=== PATIENT | male | born 1955 | race Caucasian/White ===

== ENCOUNTER → 2018-09-01 | Outpatient (CLI) | payer SELFPAY ==
[2018-09-01 15:19] LABS: BASOPHILS ABSOLUTE AUTO 0.05 K/mm3 (0.00-0.23); BASOPHILS PERCENT AUTO 0 % (0-2); EOSINOPHILS ABSOLUTE AUTO 0.12 K/mm3 (0.00-0.68); EOSINOPHILS PERCENT AUTO 1 % (0-6); Hematocrit 48.1 % (37.0-53.0); Hemoglobin 16.7 g/dL (13.5-17.5); IMMATURE GRAN ABSOLUTE AUTO 0.06 K/mm3 (0.00-0.10); IMMATURE GRAN PERCENT AUTO 1 % (0-1); LYMPHOCYTES ABSOLUTE AUTO 2.61 K/mm3 (0.84-5.20); LYMPHOCYTES PERCENT AUTO 21 % (21-46); MONOCYTES ABSOLUTE AUTO 0.77 K/mm3 (0.16-1.47); MONOCYTES PERCENT AUTO 6 % (4-13); Mean Corpuscular HGB 29.4 pg (26.0-34.0); Mean Corpuscular HGB Conc 34.7 g/dL (31.5-36.5); Mean Corpuscular Volume 85 fL (80-100); NEUTROPHILS ABSOLUTE AUTO 8.95 K/mm3 (1.96-9.15); NEUTROPHILS PERCENT AUTO 71 % (41-73); Platelet Count 261 K/mm3 (150-400); RDW Coefficient Variation 12.5 % (11.7-14.2); RDW Standard Deviation 38.2 fL (35.1-46.3); Red Blood Cell Count 5.68 M/mm3 (4.30-5.90); White Blood Cell Count 12.56 K/mm3 (4.00-11.30)
[2018-09-01 15:30] LABS: Anion Gap 10 mmol/L (6-16); Blood Urea Nitrogen 39 mg/dL (8-24); Bun/Creatinine Ratio 22.7 (12.0-20.0); CO2, Blood 28 mmol/L (21-32); Calcium, Blood 10.1 mg/dL (8.5-10.1); Chloride, Blood 89 mmol/L (98-108); Creatinine, Blood 1.72 mg/dL (0.60-1.20); Glomerular Filtration Rate 40 (60-); Glucose, Blood 496 mg/dL (70-99); Potassium, Blood 4.9 mmol/L (3.5-5.5); Sodium, Blood 127 mmol/L (136-145)
[2018-09-01 15:32] LABS: Troponin I <0.017 ng/mL (0.000-0.040)
== END | disposition home or self-care (01) ==
LOC: LAB SHORT 15:11 → LAB EV 15:11
PROVIDERS: Family Medicine
DX: E11.9 Type 2 diabetes mellitus without complications (principal); E86.1 Hypovolemia
CPT/HCPCS: 80048; 84484; 85025

== ENCOUNTER → 2018-10-11 | Outpatient (CLI) | payer BC ==
[~2018-10-11] MED LIST: LISI20 PO; Metformin HCl1000 MG PO; PIOG30 PO
[2018-10-11 11:33] LABS: BASOPHILS ABSOLUTE AUTO 0.02 K/mm3 (0.00-0.23); BASOPHILS PERCENT AUTO 0 % (0-2); EOSINOPHILS ABSOLUTE AUTO 0.17 K/mm3 (0.00-0.68); EOSINOPHILS PERCENT AUTO 2 % (0-6); Hematocrit 44.1 % (37.0-53.0); Hemoglobin 13.4 g/dL (13.5-17.5); IMMATURE GRAN ABSOLUTE AUTO 0.02 K/mm3 (0.00-0.10); IMMATURE GRAN PERCENT AUTO 0 % (0-1); LYMPHOCYTES ABSOLUTE AUTO 1.99 K/mm3 (0.84-5.20); LYMPHOCYTES PERCENT AUTO 24 % (21-46); MONOCYTES ABSOLUTE AUTO 0.59 K/mm3 (0.16-1.47); MONOCYTES PERCENT AUTO 7 % (4-13); Mean Corpuscular HGB 29.9 pg (26.0-34.0); Mean Corpuscular HGB Conc 30.4 g/dL (31.5-36.5); Mean Corpuscular Volume 98 fL (80-100); Mean Platelet Volume 11.3 fL (9.1-12.4); NEUTROPHILS ABSOLUTE AUTO 5.66 K/mm3 (1.96-9.15); NEUTROPHILS PERCENT AUTO 67 % (41-73); Platelet Count 172 K/mm3 (150-400); RDW Coefficient Variation 13.2 % (11.7-14.2); RDW Standard Deviation 47.1 fL (35.1-46.3); Red Blood Cell Count 4.48 M/mm3 (4.30-5.90); White Blood Cell Count 8.45 K/mm3 (4.00-11.30)
[2018-10-11 11:43] LABS: Alanine Aminotransfer (ALT/SGP 13 U/L (12-78); Albumin/Globulin Ratio 0.7 (0.8-1.8); Alk Phos 92 U/L (50-136); Anion Gap 5 mmol/L (6-16); Aspartate Aminotrans (AST/SGOT 7 U/L (12-37); Bilirubin, Total 0.3 mg/dL (0.1-1.0); Blood Urea Nitrogen 21 mg/dL (8-24); Bun/Creatinine Ratio 22.5 (12.0-20.0); CHOL/HDL RATIO 5.8; CO2, Blood 30 mmol/L (21-32); Calcium, Blood 8.8 mg/dL (8.5-10.1); Chloride, Blood 105 mmol/L (98-108); Cholesterol 190 mg/dL (50-200); Creatinine, Blood 0.93 mg/dL (0.60-1.20); Globulin, Blood 4.5 g/dL (2.2-4.0); Glomerular Filtration Rate >60 (60-); Glucose, Blood 201 mg/dL (70-99); HDL Cholesterol 33 mg/dL (>39); LDL/HDL RATIO 3.9; Low Density Lipoprotein Chol 129 mg/dL (0-110); Sodium, Blood 140 mmol/L (136-145); Total Protein, Blood 7.5 g/dL (6.4-8.2); Triglycerides 139 mg/dL (30-160); Very Low Density Lipoprot Chol 27 mg/dL (6-32)
[2018-10-11 12:31] LABS: Microalb/Creat Ratio UR, Rand 984.733 mg/g (0.000-30.000)
== END ==
LOC: LAB SHORT 11:19 → LAB 11:19
PROVIDERS: Family Medicine
DX: E11.9 Type 2 diabetes mellitus without complications (principal)
CPT/HCPCS: 80053; 80061; 82043; 82570; 85025

== ENCOUNTER 2018-10-12 11:17 | Emergency (ER) | payer BC ==
[~2018-10-12] VITALS: Ht 182.9 cm; Wt 85.3 kg
[2018-10-12] MEDS ORDERED: Metformin HCl1000 MG PO (11:45)
[2018-10-12] MEDS ORDERED: LISI20 PO (11:45)
[2018-10-12] MEDS ORDERED: PIOG30 PO (11:46)
== END 2018-10-12 14:30 | disposition home or self-care (01) ==
LOC: ER 11:17
DX: E11.69 Type 2 diabetes mellitus with other specified complication (principal); M86.9 Osteomyelitis, unspecified; E11.621 Type 2 diabetes mellitus with foot ulcer; L97.519 Non-pressure chronic ulcer of other part of right foot with unspecified severity; I10 Essential (primary) hypertension; F17.200 Nicotine dependence, unspecified, uncomplicated; Z79.899 Other long term (current) drug therapy; Z79.84 Long term (current) use of oral hypoglycemic drugs
CPT/HCPCS: 36415; 73630; 82947; 87071; 87075; 87077; 87186; 87205; 93971; 96365; 99283-25; J0696

== ENCOUNTER 2018-10-13 09:51 | Day surgery (SDC) | payer BC | END 2018-10-13 11:03 | disposition home or self-care (01) | LOC: ATC 09:51 | DX: E11.69 Type 2 diabetes mellitus with other specified complication (principal); M86.9 Osteomyelitis, unspecified; E11.621 Type 2 diabetes mellitus with foot ulcer; L97.519 Non-pressure chronic ulcer of other part of right foot with unspecified severity; I10 Essential (primary) hypertension; F17.200 Nicotine dependence, unspecified, uncomplicated | CPT/HCPCS: 96365; J0696 ==

== ENCOUNTER 2018-10-14 07:29 | Day surgery (SDC) | payer BC | END 2018-10-14 14:36 | disposition home or self-care (01) | LOC: ATC 07:29 | DX: E11.69 Type 2 diabetes mellitus with other specified complication (principal); M86.9 Osteomyelitis, unspecified; E11.621 Type 2 diabetes mellitus with foot ulcer; L97.519 Non-pressure chronic ulcer of other part of right foot with unspecified severity; I10 Essential (primary) hypertension; F17.200 Nicotine dependence, unspecified, uncomplicated | CPT/HCPCS: 96365; J0696 ==

== ENCOUNTER 2018-10-15 15:46 | Day surgery (SDC) | payer BC ==
--- NOTE | 2018-10-15 16:09 | NUR ---
History, Chart, Medications and Allergies reviewed before start of procedure. Lungs clear T/O to Auscultation. Patient States Post-Procedure ride home has been arranged. Patient confirms NPO status and agrees with scheduled surgery.
--- NOTE | 2018-10-15 18:00 | NUR ---
Patient up to Ambulate independently. Gait steady. Discharge instructions reviewed with patient. Patient verbalizes understanding. Copy given to patient to take home. Patient States Post-Procedure ride home has been arranged. Discharged via wheelchair to private car for ride home.
== END 2018-10-15 23:34 | disposition home or self-care (01) ==
LOC: ORSCMMR 15:46 → ORD 20:00 → ORSCMMR 20:00
PROVIDERS: Podiatrist
PROC: 0Y6P0Z3 Detachment at Right 1st Toe, Low, Open Approach (ICD-10-PCS; principal; 2018-10-15 20:00)
PROC: 0Y6R0Z3 Detachment at Right 2nd Toe, Low, Open Approach (ICD-10-PCS; principal; 2018-10-15 20:00)
DX: M86.171 Other acute osteomyelitis, right ankle and foot (principal); L97.514 Non-pressure chronic ulcer of other part of right foot with necrosis of bone; I10 Essential (primary) hypertension; E11.9 Type 2 diabetes mellitus without complications; Z79.899 Other long term (current) drug therapy; F17.210 Nicotine dependence, cigarettes, uncomplicated
CPT/HCPCS: 82947; 88305; 88311; J0690; J2250; J2704; J3010; J7120

== ENCOUNTER 2018-11-29 09:19 | Inpatient (IN) | payer BC ==
[~2018-11-29] VITALS: Ht 182.9 cm; Wt 86.3 kg
[2018-11-29 10:03] LABS: Hematocrit 47.3 % (37.0-53.0); Hemoglobin 14.9 g/dL (13.5-17.5); Mean Corpuscular HGB 28.1 pg (26.0-34.0); Mean Corpuscular HGB Conc 31.5 g/dL (31.5-36.5); Mean Corpuscular Volume 89 fL (80-100); Mean Platelet Volume 12.1 fL (9.1-12.4); Platelet Count 166 K/mm3 (150-400); RDW Coefficient Variation 13.9 % (11.7-14.2); RDW Standard Deviation 45.4 fL (35.1-46.3); Red Blood Cell Count 5.31 M/mm3 (4.30-5.90); White Blood Cell Count 12.55 K/mm3 (4.00-11.30)
[2018-11-29 10:23] LABS: International Normalized Ratio 0.98; Prothrombin Time Results 10.4 Sec (9.7-11.5)
[2018-11-29 10:32] LABS: Alanine Aminotransfer (ALT/SGP 29 U/L (12-78); Albumin, Blood 4.2 g/dL (3.4-5.0); Albumin/Globulin Ratio 0.9 (0.8-1.8); Alk Phos 137 U/L (50-136); Anion Gap 5 mmol/L (6-16); Aspartate Aminotrans (AST/SGOT 27 U/L (12-37); Bilirubin, Total 0.6 mg/dL (0.1-1.0); Blood Urea Nitrogen 24 mg/dL (8-24); Bun/Creatinine Ratio 20.3 (12.0-20.0); CHOL/HDL RATIO 3.6; CO2, Blood 29 mmol/L (21-32); Calcium, Blood 9.4 mg/dL (8.5-10.1); Chloride, Blood 100 mmol/L (98-108); Cholesterol 149 mg/dL (50-200); Creatinine, Blood 1.18 mg/dL (0.60-1.20); Globulin, Blood 4.5 g/dL (2.2-4.0); Glomerular Filtration Rate >60 (60-); Glucose, Blood 414 mg/dL (70-99); HDL Cholesterol 41 mg/dL (>39); LDL/HDL RATIO 1.9; Low Density Lipoprotein Chol 80 mg/dL (0-110); Magnesium, Blood 1.4 mg/dL (1.6-2.4); Potassium, Blood 3.8 mmol/L (3.5-5.5); Sodium, Blood 134 mmol/L (136-145); Total Protein, Blood 8.7 g/dL (6.4-8.2); Triglycerides 141 mg/dL (30-160); Troponin I 0.095 ng/mL (0.000-0.040); Very Low Density Lipoprot Chol 28 mg/dL (6-32)
[2018-11-29] MEDS ORDERED: ATOR40TA PO (11:25)
--- NOTE | 2018-11-29 12:52 | NUR ---
ARRIVAL TO ICU 1115 - PT ARRIVES TO ICU FROM REGIONAL MARKETING DIRECTOR. TR BAND SECURED ON R WRIST AND ARM IN ARMBOARD. PT AWARE THAT HE IS NOT TO BEND WRIST, PUSH OR PULL WITH R ARM. R FINGERS DARRELL BUT ARE SLIGHTLY COOL; MONITORING CLOSELY. DENIES CHEST PAIN OR ANY PAIN AT THIS TIME. IV SALINE LOCKED. NSR WITH PACS, HR 60-70S. MAP GREATER THAN 65. SPO2 98% ON RA; LUNG SOUNDS CLEAR IN ALL SUMMERS. PT A/O X 3, CALM AND APPROPRIATE. HAD EXTENSIVE DISCUSSION WITH MD KILPATRICK REGARDING HIS WANTS OF DNR STATUS; STATED HE DOES NOT WANT TO BE SHOCKED OR HAVE COMPRESSIONS. MD EVANGELISTA CONSULTED FOR DIABETES AND MEDICAL MANAGEMENT. PHOTOS OBTAINED OF SCABBED DIABETIC ULCER ON R GREAT TOE; SEE HARD CHART. CALL LIGHT WITHIN REACH. WILL CONTINUE TO MONITOR.
[2018-11-29 13:57] LABS: BASOPHILS ABSOLUTE AUTO 0.02 K/mm3 (0.00-0.23); BASOPHILS PERCENT AUTO 0 % (0-2); EOSINOPHILS ABSOLUTE AUTO 0.01 K/mm3 (0.00-0.68); EOSINOPHILS PERCENT AUTO 0 % (0-6); Hematocrit 41.7 % (37.0-53.0); Hemoglobin 13.5 g/dL (13.5-17.5); IMMATURE GRAN ABSOLUTE AUTO 0.02 K/mm3 (0.00-0.10); IMMATURE GRAN PERCENT AUTO 0 % (0-1); LYMPHOCYTES ABSOLUTE AUTO 1.52 K/mm3 (0.84-5.20); LYMPHOCYTES PERCENT AUTO 16 % (21-46); MONOCYTES ABSOLUTE AUTO 0.51 K/mm3 (0.16-1.47); MONOCYTES PERCENT AUTO 6 % (4-13); Mean Corpuscular HGB 29.5 pg (26.0-34.0); Mean Corpuscular HGB Conc 32.4 g/dL (31.5-36.5); Mean Corpuscular Volume 91 fL (80-100); Mean Platelet Volume 11.9 fL (9.1-12.4); NEUTROPHILS ABSOLUTE AUTO 7.26 K/mm3 (1.96-9.15); NEUTROPHILS PERCENT AUTO 78 % (41-73); Platelet Count 126 K/mm3 (150-400); RDW Coefficient Variation 13.8 % (11.7-14.2); RDW Standard Deviation 46.5 fL (35.1-46.3); Red Blood Cell Count 4.58 M/mm3 (4.30-5.90); White Blood Cell Count 9.34 K/mm3 (4.00-11.30)
[2018-11-29 14:18] LABS: Anion Gap 4 mmol/L (6-16); Blood Urea Nitrogen 23 mg/dL (8-24); Bun/Creatinine Ratio 23.5 (12.0-20.0); CO2, Blood 27 mmol/L (21-32); Calcium, Blood 8.4 mg/dL (8.5-10.1); Chloride, Blood 104 mmol/L (98-108); Creatinine, Blood 0.98 mg/dL (0.60-1.20); Glomerular Filtration Rate >60 (60-); Glucose, Blood 296 mg/dL (70-99); Potassium, Blood 4.3 mmol/L (3.5-5.5); Sodium, Blood 135 mmol/L (136-145)
[2018-11-29 14:35] LABS: CPK Creatine Kinase 1254 U/L (39-308)
[2018-11-29 14:50] LABS: Creatine Kinase MB 234.3 ng/mL (0.0-3.6); Creatine Kinase MB Index 18.7 (0.0-4.0)
--- NOTE | 2018-11-29 18:32 | NUR ---
SHIFT SUMMARY PT ARRIVES FROM BATTERY MECHANIC AT 1115 WITH TR BAND SECUREDD. TR BAND REMOVED AT 1700 AND ARM REMAINS IN ARMBOARD. DENIES CHEST PAIN THIS AFTERNOON. NSR, HR 80S AND STABLE BP. COREG DOSE HELD DUE TO TRENDS OF MAPS 65-75. UP TO TOILET WITH NO ASSIST. IV SALINE LOCKED. NO REBLEEDING FROM RADIAL SITE. SPOKE WITH MD KILPATRICK AND HE STATED PT IS TO REMAIN IN ICU FOR THE NIGHT. WILL GIVE BEDSIDE HANDOFF REPORT TO CARRILLO RN.
--- NOTE | 2018-11-29 19:15 | NUR ---
ASSUME CARE: REPORT RECIEVED FROM OFFGOING RN TO. MONITOR INTACT SHOWING SINUS RHYTHM. HEART RATE 80'S. DENIES DISCOMFORT. A/O WATCHING TV. LUNG SOUNDS CLEAR RESPIRATIONS REGULAR AND EASY AT REST. SPO2 96%. TR BAND SITE CLEAR ARMBOARD IN PLACE. ABDOMEN SOFT WITH BOWEL SOUNDS FOUR QUADS. R GREAT TOE DRESSING DRY INTACT. PEDAL PULSES PRESENT NO EDEMAN NOTED. CONTINUR TO MONITOR AND REPORT CHANGE IN PATIENT CONDITION
--- NOTE | 2018-11-29 21:45 | NUR ---
. DR MARTE NOTIFIED OF PATIENTS REQUEST TO TAKE "DIABETIC MEDICATION" " BECAUSE 189 IS TOO HIGH" ATTEMPTED TO EXPLAIN THAT WAS ON LOW SLIDING SCALE AND NURSES WOULD BE MONITORING BLOOD SUGARS. INSISTENT THAT WOULD CALL FRIEND TO BRING IN OWN MED. "i WILL BE TAKING MEDICATION FOR MY DIABETES TONIGHT". DR MARTE IN TO SEE PATIENT ORDERS NOTED. CONTINUE TO MONITOR AND REPORT CHANGE IN PATIENT CONDITION.
[2018-11-29 22:05] LABS: Troponin I 77.5 ng/mL (0.000-0.040)
[2018-11-29 22:24] LABS: Creatine Kinase MB 186.3 ng/mL (0.0-3.6); Creatine Kinase MB Index 17.3 (0.0-4.0)
[2018-11-30 04:10] LABS: Hematocrit 36.1 % (37.0-53.0); Hemoglobin 11.4 g/dL (13.5-17.5); Mean Corpuscular HGB 28.1 pg (26.0-34.0); Mean Corpuscular HGB Conc 31.6 g/dL (31.5-36.5); Mean Corpuscular Volume 89 fL (80-100); Mean Platelet Volume 12.3 fL (9.1-12.4); Platelet Count 108 K/mm3 (150-400); RDW Coefficient Variation 14.1 % (11.7-14.2); Red Blood Cell Count 4.06 M/mm3 (4.30-5.90); White Blood Cell Count 8.16 K/mm3 (4.00-11.30)
[2018-11-30 04:50] LABS: Anion Gap 3 mmol/L (6-16); Blood Urea Nitrogen 24 mg/dL (8-24); Bun/Creatinine Ratio 23.8 (12.0-20.0); CO2, Blood 27 mmol/L (21-32); Calcium, Blood 8.1 mg/dL (8.5-10.1); Chloride, Blood 110 mmol/L (98-108); Creatinine, Blood 1.01 mg/dL (0.60-1.20); Glomerular Filtration Rate >60 (60-); Glucose, Blood 180 mg/dL (70-99); Magnesium, Blood 1.4 mg/dL (1.6-2.4); Potassium, Blood 4.4 mmol/L (3.5-5.5); Sodium, Blood 140 mmol/L (136-145)
[2018-11-30 05:08] LABS: CPK Creatine Kinase 787 U/L (39-308)
--- NOTE | 2018-11-30 05:27 | NUR ---
SHIFT SUMMARY: RESTS QUIETLY WHEN UNDISTURBED. MONITOR INTACT SHOWING SINUS RHYTHM. HEART RATE 60'S-80S WITH PAC, REPERFUSION BEATS, SEE RHYTHM STRIPS. DENIES DISCOMFORT. LUNG SOUNDS COARSE/CLEAR. RESPIRATIONS REGULAR AND EASY ON ROOM AIR. SPO2 95-98% ABDOMEN SOFT WITH BOWEL SOUNDS FOUR QUADS. VOIDS GRETCHEN URINE. GAIT STEADY TO TOILET. TR BAND SITE CLEAR ARMBOARD IN PLACE. CONTINUE TO MONITOR AND REPORT CHANGE IN PATIENT CONDITION.'
[2018-11-30 05:28] LABS: Creatine Kinase MB 119.4 ng/mL (0.0-3.6); Creatine Kinase MB Index 15.2 (0.0-4.0)
--- NOTE | 2018-11-30 08:40 | NUR ---
PT LAYING IN BED WATCHING TV, A/OX3, PLEASANT AND COOPERATIVE WITH CARE, FOLLOW COMMANDS WELL, DENIES ANY CHEST PAIN SINCE PROCEDURE, NO SOB OR NAUSIA, LUNGS ARE CLEAR T/O, RESP EVEN AND UNLABORED, NO COUGH NOTED, HRR, MONITOR IN PLACE RUNNING SR WITH OCC PAC'S, NO EDEMA NOTED, PPP+1, CAP REFILL <3SEC, VS STABLE, AFEBRILE, IV SITE TO RAC IS CLEAR AND PATENT, BTX4, ABD FLAT SOFT NONTENDER, VOIDS WITHOUT DIFF, SKIN HAS SOME SCABS AND WOUND TO RIGHT GREAT TOE ON THE BOTTOM, DRESSING IN PLACE, LEONA FOURNIER, CALL LIGHT IN REACH.
[2018-11-30] MEDS ORDERED: ASPI325 PO (09:54)
[2018-11-30] MEDS ORDERED: Lisinopril2.5 MG PO (09:54)
[2018-11-30] MEDS ORDERED: CARV3.125 PO (09:55)
[2018-11-30] MEDS ORDERED: CLOP75 PO (09:55)
--- NOTE | 2018-11-30 10:45 | NUR ---
RECEIVE REPORT FROM JOSE GRESHAM RN, ASSUMED CARE, PATIENT HAS DISCHARGE ORDERS, AWAITING DR. ERVIN TO AGREE FOR DISCHARGE, DR. ERVIN IN TO SEE PATIENT, BUT CALLED DR. PALACIO, [place], TO COME AND SPEAK WITH PATIENT, DR. PALACIO IN, PATIENT WAS GIVEN OPTION OF HAVING THIRD PROCEDURE DONE NOW OR ON AN OUTPATIENT BASE, PATIENT WILL DECIDE, CALL LIGHT IN REACH, WILL CONTINUE TO MONITOR.
--- NOTE | 2018-11-30 11:27 | NUR ---
PATIENT DECIDED TO HAVE PROCEDURE DONE TODAY, DR. ANDERSEN WAS NOTIFIED, WILL DO HEART CATH BETWEEN NOON AND 1 PM, PATIENT NPO AT THIS TIME, CALL LIGHT IN REACH, WILL CONTINUE TO MONITOR.
--- NOTE | 2018-11-30 11:31 | NUR ---
DR. SU NOTIFIED THAT PATIENT WILL NOT BE DISCHARGED TODAY.
--- NOTE | 2018-11-30 13:04 | NUR ---
PATIENT WAS TAKEN TO RECYCLING ASSISTANT AT 1245 VIA BED.
--- NOTE | 2018-11-30 14:33 | NUR ---
PATIENT RETURNED TO ROOM 14 FROM CAR UNLOADER HELPER AT 13:57, TR BAND IN PLACE ON RIGHT WRIST, PATIENT RETURNED WITH AGGRASTAT INFUSING, DONE WHEN BOTTLE COMPLETE, PATIENT DENIED PAIN, REPORTED NO CHEST PAIN/PRESSURE, NO SOB, STATED THAT HE "WAS HUNGRY", LUNCH TRAY GIVEN, PATIENT ATE WITH GOOD APPETITE, DR. PALACIO IN TO SEE PATIENT AND EXPLAIN PROCEDURE, PATIENT VERBALIZED UNDERSTANDING, WILL POSSIBLY BE DISCHARGED TOMORROW, FRIENDS AT BEDSIDE VISITING, CALL LIGHT IN REACH, WILL CONTINUE TO MONITOR.
--- NOTE | 2018-11-30 15:11 | NUR ---
PATIENT CONTINUES TO DO WELL WITH TR BAND, ABLE TO WIGGLE FINGERS, SENSATION PRESENT, COLOR PINK, C/O SLIGHT NUMBNESS IN RING FINGER BUT CSM INTACT OTHERWISE, VISITORS AT BEDSIDE, PATIENT DENIES PAIN, CHEST PAIN/PRESSURE, CALL LIGHT IN REACH, WILL CONTINUE TO MONITOR.
--- NOTE | 2018-11-30 16:47 | NUR ---
TR BAND WAS REINFLATED WITH 4 CC TO 10 CC TOTAL D/T SLIGHT OOZING, PATIENT IS ON AGGRASTAT DRIP, WILL WAIT UNTIL DRIP DONE, THEN RE-ATTEMPT.
--- NOTE | 2018-11-30 17:46 | NUR ---
SHIFT SUMMARY NOTE: PATIENT WAS INITIALLY DISCHARGED BY HOSPITALIST, BUT DR. PALACIO, STORE MANAGEMENT TRAINEE SPOKE WITH PATIENT AND IT WAS DECIDED THAT PATIENT WILL STAY AND HAVE THIRD STENT PLACEMENT DONE WELL, DR. SU NOTIFIED, DISCHARGE ON HOLD, PATIENT RECEIVED SHOWER PRIOR TO HEART CATH PROCEDURE, WAS TAKEN TO ELECTRICAL ACCESSORIES I ASSEMBLER AROUND 13:00 HOURS, AND RETURNED ABOUT 14:00 HOURS, STENT PLACEMENT WAS DONE VIA RIGHT RADIAL AGAIN, PATIENT RETURNED WITH TR BAND IN PLACE ON RIGHT RADIAL, ALSO WAS ON AGGRASTAT DRIP FOR ONE BOTTLE, DURING DEFLATION OF TR BAND THE INCISION SITE STARTED TO OOZE AT 6 CC'S LEFT IN BAND, TR BAND WAS REINFLATED TO 10 CC'S, AGGRASTAT DRIP FINISHED AND WILL ATTEMPT TO DEFLATE BAND AGAIN, PATIENT TOLERATING WELL, VSS, EATING WITH GOOD APPETITE, USES URINAL TO VOID, DISCHARGE PLANNED FOR TOMORROW, FOR DETAILS SEE ASSESSMENT DOCUMENTATION AND NURSES NOTES, CALL LIGHT IN REACH, WILL CONTINUE TO MONITOR.
--- NOTE | 2018-11-30 17:58 | NUR ---
Per admit trigger, I met with Wyatt to offer information regarding Advanced Directives.. He tells me that his Will includes his wishes and a medical spokesperson. I advised him to bring a copy to [facility] next time he is hospitalized. He agreed this was a good idea. No needs presented. He feels better and is looking forward to going home. I will remain available.
--- NOTE | 2018-11-30 19:30 | NUR ---
ASSUMED CARE PT CARE ASSUMED AT APPROXIMATELY 1900. PT RICHAR AOX4 AND RESTING IN BED WATCHING TV. TR BAND IN PLACE TO R RADIAL SITE AND COMPLETELY DEFLATED. PER DAY SHIFT RN, DRAINAGE NOTED UNDER TR BAND IS FROM EARLIER WITH OOZING UPON INITIAL DEFLATION. NO BRUISING, HEMATOMA OR SWELLING NOTED TO OR AROUND RADIAL SITE. ARM BOARD IN PLACE AND EDUCATION REITERATED ON REDUCING USE OR R WRIST. PT VERBALIZES UNDERSTANDING. DENIES ANY CHEST PAIN OR DYSPNEA AT THIS TIME. WILL CONTINUE TO MONITOR.
--- NOTE | 2018-12-01 06:23 | NUR ---
SHIFT SUMMARY PT HAS REMAINED AOX4 THROUGHOUT SHIFT. VSS. PLEASANT AND COOPERATIVE WITH CARE. TR BAND REMOVED AT APPROXIMATELY 1999 LAST NIGHT WITH VERY MINIMAL DRAINAGE NOTED AFTER SITE CLEANED AND CLEAR OPSITE PLACED. SITE HAS REMAINED UNCHANGED THROUGHOUT THE NIGHT AND PATIENT CONTINUES TO DENY PAIN ON PALPATION OF ARM AND AROUND SITE. ARM BOARD IN PLACE. PT CONTINUES TO DENY CHEST PAIN THROUGHOUT THE NIGHT. PT HAS RESTED WELL THROUGHOUT MUCH OF THE NIGHT, WOKE EASILY FOR CARE. CONTINUES TO AMBULATE INDEPENDENTLY TO TOILET WITHOUT DIFFICULTY. NO OTHER CHANGES NOTED FROM INITIAL ASSESSMENT WILL CONTINUE TO MONITOR AND REPORT TO ONCOMING SHIFT RN. BED IN LOW POSITION, CALL LIGHT IN REACH.
[2018-12-01] MEDS ORDERED: LISI5 PO (07:48)
--- NOTE | 2018-12-01 07:50 | NUR ---
ASSUMED CARE / DR. SU: REPORT RECEIVED FROM MATTHIAS Sandoval RN. ASSUMED CARE OF THIS PT AT APPROX 0700. ON ASSESSMENT, THE PT IS A&O, PLEASANT & COOPERATIVE. HE STS THAT HE HOPES TO D/C HOME TODAY. ASSESSMENT CHARTED. R RADIAL SITE IS WNL W/ NO BLEEDING, BRUISING OR HEMATOMA FORMATION NOTED. OPSITE DRESSING CDI. DRESSING TO ULCER ON R GREAT TOE AMPUTATION SITE HAS BEEN CHANGED. PROVIDER AT BEDSIDE TO SEE PT, D/C ORDERS HAVE BEEN PLACED. ONE D/C MED CHANGE HAS BEEN MADE. PT USES [facility] [place] FOR PHARMACY, WILL CALL THIS MED CHANGE WHEN PHARMACY OPENS AT 0900. WILL CONTINUE TO MONITOR & UPDATE NEEDED.
--- NOTE | 2018-12-01 08:56 | NUR ---
DISCHARGE TO HOME: D/C TEACHING COMPLETE. MONITORS & PIV HAVE BEEN REMOVED. PT VERBALIZES UNDERSTANDING OF WRIST PRECAUTIONS S/P ANGIOGRAM. D/C PACKET & STENT CARDS HAVE BEEN TAKEN OUT W/ PT, ALONG W/ ALL OF PT's BELONGINGS. R RADIAL SITE WNL ON D/C. PT VERBALIZES UNDERSTANDING OF EDUCATION PROVIDED TO HIM.
== END 2018-12-01 08:55 | disposition home or self-care (01) | DRG 247 ==
LOC: ER 09:19 → ICUW 09:43
PROVIDERS: Emergency Medicine; Internal Medicine; ADMIT Internal Medicine Cardiovascular Disease
PROC: 4A023N7 Measurement of Cardiac Sampling and Pressure, Left Heart, Percutaneous Approach (ICD-10-PCS; principal; 2018-11-29)
PROC: 027034Z Dilation of Coronary Artery, One Artery with Drug-eluting Intraluminal Device, Percutaneous Approach (ICD-10-PCS; 2018-11-29)
PROC: B211YZZ Fluoroscopy of Multiple Coronary Arteries using Other Contrast (ICD-10-PCS; 2018-11-29)
DX: I21.19 ST elevation (STEMI) myocardial infarction involving other coronary artery of inferior wall (principal); I10 Essential (primary) hypertension; I25.10 Atherosclerotic heart disease of native coronary artery without angina pectoris; E11.621 Type 2 diabetes mellitus with foot ulcer; L97.519 Non-pressure chronic ulcer of other part of right foot with unspecified severity; F17.210 Nicotine dependence, cigarettes, uncomplicated; E83.42 Hypomagnesemia
CPT/HCPCS: 36415; 80048; 80053; 80061; 82550; 82553; 82947; 83735; 84484; 85025; 85027; 85347; 85610; 85730; 93005; 93010; 93458; 99152; 99153; 99285-25; C1725; C1769; C1874; C1887; C1894; C9600; C9606; J1644; J1650; J2250; J2270; J3010; J3246; J7030; Q9967

== ENCOUNTER 2019-05-30 19:24 | Emergency (ER) | payer BC, OTHER ==
[~2019-05-30] VITALS: Ht 182.9 cm; Wt 86.2 kg
[~2019-05-30 19:24] MED LIST changes: +ASPI325 PO; +ATOR40TA PO; +CARV3.125 PO; +CLOP75 PO; +LISI5 PO; +Lisinopril2.5 MG PO
[2019-05-30] MEDS ORDERED: LIDO700A20 TOP (21:23)
== END 2019-05-30 21:30 | disposition home or self-care (01) ==
LOC: ER 19:24
DX: S40.022A Contusion of left upper arm, initial encounter (principal); E11.9 Type 2 diabetes mellitus without complications; I10 Essential (primary) hypertension; Z79.899 Other long term (current) drug therapy; Z79.84 Long term (current) use of oral hypoglycemic drugs; Z79.82 Long term (current) use of aspirin; Z79.01 Long term (current) use of anticoagulants; Z87.891 Personal history of nicotine dependence; X58.XXXA Exposure to other specified factors, initial encounter
CPT/HCPCS: 73030; 99283-25

== ENCOUNTER 2019-07-25 09:52 | Emergency (ER) | payer OTHER, BC ==
[~2019-07-25] VITALS: Ht 182.9 cm; Wt 90.3 kg
[~2019-07-25 09:52] MED LIST changes: +LIDO700A20 TOP
== END 2019-07-25 10:36 | disposition home or self-care (01) ==
LOC: ER 09:52
DX: Z04.1 Encounter for examination and observation following transport accident (principal); E11.9 Type 2 diabetes mellitus without complications; I10 Essential (primary) hypertension; F17.200 Nicotine dependence, unspecified, uncomplicated; Z79.84 Long term (current) use of oral hypoglycemic drugs; Z79.82 Long term (current) use of aspirin; Z79.899 Other long term (current) drug therapy
CPT/HCPCS: 99284

== ENCOUNTER 2019-08-31 11:52 | Inpatient (IN) | payer OTHER ==
[~2019-08-31] VITALS: Ht 182.9 cm; Wt 82.7 kg
[~2019-08-31 11:52] MED LIST changes: -ASPI325 PO; -ATOR40TA PO; -CARV3.125 PO; -CLOP75 PO; -LISI5 PO; -Metformin HCl1000 MG PO; -PIOG30 PO
[2019-08-31 12:51] LABS: BASOPHILS ABSOLUTE AUTO 0.04 K/mm3 (0.00-0.23); BASOPHILS PERCENT AUTO 1 % (0-2); EOSINOPHILS ABSOLUTE AUTO 0.09 K/mm3 (0.00-0.68); EOSINOPHILS PERCENT AUTO 1 % (0-6); Hematocrit 43.8 % (37.0-53.0); Hemoglobin 14.6 g/dL (13.5-17.5); IMMATURE GRAN ABSOLUTE AUTO 0.03 K/mm3 (0.00-0.10); IMMATURE GRAN PERCENT AUTO 0 % (0-1); LYMPHOCYTES PERCENT AUTO 17 % (21-46); MONOCYTES ABSOLUTE AUTO 0.52 K/mm3 (0.16-1.47); MONOCYTES PERCENT AUTO 6 % (4-13); Mean Corpuscular HGB 29.3 pg (26.0-34.0); Mean Corpuscular HGB Conc 33.3 g/dL (31.5-36.5); Mean Corpuscular Volume 88 fL (80-100); NEUTROPHILS ABSOLUTE AUTO 6.67 K/mm3 (1.96-9.15); NEUTROPHILS PERCENT AUTO 75 % (41-73); Platelet Count 158 K/mm3 (150-400); RDW Coefficient Variation 12.6 % (11.7-14.2); RDW Standard Deviation 40.4 fL (35.1-46.3); Red Blood Cell Count 4.99 M/mm3 (4.30-5.90); White Blood Cell Count 8.85 K/mm3 (4.00-11.30)
[2019-08-31 13:16] LABS: Alanine Aminotransfer (ALT/SGP 15 U/L (12-78); Albumin, Blood 3.4 g/dL (3.4-5.0); Albumin/Globulin Ratio 0.8 (0.8-1.8); Alk Phos 115 U/L (50-136); Anion Gap 5 mmol/L (6-16); Aspartate Aminotrans (AST/SGOT 19 U/L (12-37); Bilirubin, Total 0.6 mg/dL (0.1-1.0); Blood Urea Nitrogen 17 mg/dL (8-24); CO2, Blood 31 mmol/L (21-32); Calcium, Blood 9.4 mg/dL (8.5-10.1); Chloride, Blood 106 mmol/L (98-108); Creatinine, Blood 0.81 mg/dL (0.60-1.20); Globulin, Blood 4.1 g/dL (2.2-4.0); Glomerular Filtration Rate >60 (60-); Glucose, Blood 161 mg/dL (70-99); Potassium, Blood 3.7 mmol/L (3.5-5.5); Sodium, Blood 142 mmol/L (136-145); Total Protein, Blood 7.5 g/dL (6.4-8.2)
[2019-08-31] MEDS ORDERED: ASPI325 PO (14:59)
[2019-08-31] MEDS ORDERED: CLOP75 PO (14:59)
[2019-08-31] MEDS ORDERED: CARV3.125 PO (14:59)
[2019-08-31] MEDS ORDERED: LISI5 PO (14:59)
[2019-08-31] MEDS ORDERED: Metformin HCl1000 MG PO (14:59)
[2019-08-31] MEDS ORDERED: ATOR40TA PO (14:59)
[2019-08-31] MEDS ORDERED: NITR.4SL SL (15:00)
[2019-08-31] MEDS ORDERED: Glyburide5 MG PO (15:00)
[2019-08-31] MEDS ORDERED: FURO40 PO (15:21)
[2019-08-31] MEDS ORDERED: PIOG30 PO (15:21)
--- NOTE | 2019-08-31 18:34 | NUR ---
PT ADMITTED FROM ER THIS AFTERNOON. HE IS ALBE TO RESPOND WITH ONE WORDS, DOES NOT KNOW WHERE HE IS AT TIMES, IS UNABLE TO REMEMBER WHY HE IS HERE, DOESNT KNOW THE DATE , YEAR, WHO IS PRESIDENT. HE HAS ACUTE RIGHT SIDED WEAKNESS BUT NO NUMBNESS OR TINGLING. HE IS ABLE TO FEED HIMSELF AT THIS TIME WITH NO NOTICABLE SWALLOWING ISSUES. FRIENDS AT BEDSIDE.
--- NOTE | 2019-08-31 18:57 | NUR ---
pt seen in ER, confussed and difficulty tracking conversation. Met with his friend and caregiver Yrn.He understands prognosis He states he cannot care for patient anymore his needs are to high. He states hismedicaid kicked in this week. Review of possible plans of care and hospice care. Yrn was able to get ahold of his sister prabha she has patients will and knows his wishes she is going to try to be here thursday. Witnessed with pt nurse that sister wants yrn to be alternate decision maker. pt has expressed to them both that he would not want life support or cpr. Pt not able to make decision alone. after discussion pt POLST completed and pt made DNR.
--- NOTE | 2019-09-01 05:05 | NUR ---
SHIFT SUMMARY PT HAS HAD NO ACUTE CHANGES THIS SHIFT, HAS BEEN A&O TO SELF, PULLS ON LINES & REMOVES GOWN & BRIEF, DENIES PAIN, PT SLEEPING AT THIS TIME, CALL LIGHT IN REACH, BED ALARM ON, WILL CONT TO MONITOR UNTIL REPORT GIVEN TO DAY RN.
[2019-09-01 05:14] LABS: BASOPHILS PERCENT AUTO 0 % (0-2); EOSINOPHILS PERCENT AUTO 0 % (0-6); Hematocrit 37.5 % (37.0-53.0); Hemoglobin 12.6 g/dL (13.5-17.5); IMMATURE GRAN ABSOLUTE AUTO 0.02 K/mm3 (0.00-0.10); IMMATURE GRAN PERCENT AUTO 0 % (0-1); LYMPHOCYTES ABSOLUTE AUTO 0.74 K/mm3 (0.84-5.20); LYMPHOCYTES PERCENT AUTO 12 % (21-46); MONOCYTES ABSOLUTE AUTO 0.21 K/mm3 (0.16-1.47); MONOCYTES PERCENT AUTO 3 % (4-13); Mean Corpuscular HGB 28.6 pg (26.0-34.0); Mean Corpuscular HGB Conc 33.6 g/dL (31.5-36.5); Mean Platelet Volume 12.3 fL (9.1-12.4); NEUTROPHILS ABSOLUTE AUTO 5.13 K/mm3 (1.96-9.15); NEUTROPHILS PERCENT AUTO 84 % (41-73); Platelet Count 149 K/mm3 (150-400); RDW Coefficient Variation 12.2 % (11.7-14.2)
[2019-09-01 05:19] LABS: Mean Corpuscular Volume 85 fL (80-100)
[2019-09-01 05:27] LABS: International Normalized Ratio 1.08; Prothrombin Time Results 11.5 Sec (9.7-11.5)
[2019-09-01 05:32] LABS: Alanine Aminotransfer (ALT/SGP 12 U/L (12-78); Albumin, Blood 2.6 g/dL (3.4-5.0); Albumin/Globulin Ratio 0.7 (0.8-1.8); Alk Phos 91 U/L (50-136); Anion Gap 6 mmol/L (6-16); Aspartate Aminotrans (AST/SGOT 11 U/L (12-37); Bilirubin, Total 0.4 mg/dL (0.1-1.0); Blood Urea Nitrogen 17 mg/dL (8-24); Bun/Creatinine Ratio 21.2 (12.0-20.0); CO2, Blood 29 mmol/L (21-32); Calcium, Blood 8.1 mg/dL (8.5-10.1); Chloride, Blood 104 mmol/L (98-108); Globulin, Blood 3.5 g/dL (2.2-4.0); Glomerular Filtration Rate >60 (60-); Glucose, Blood 248 mg/dL (70-99); Magnesium, Blood 1.3 mg/dL (1.6-2.4); Potassium, Blood 3.5 mmol/L (3.5-5.5); Sodium, Blood 139 mmol/L (136-145); Total Protein, Blood 6.1 g/dL (6.4-8.2)
--- NOTE | 2019-09-01 12:29 | NUR ---
HE HAS HAD A BUSY MORNING WORKING WITH PT AND LATER OT. HE IS UP IN A RECLINER CHAIR WITH CHAIR ALARM ON. HE IS PLEASANTLY CONFUSED. SOMETIMES HE CAN TELL ME HIS AND SOMETIMES HE CANNOT. HIS FRIENDS DAVID AND BETTY HAVE BEEN WITH HIM MOST OF THE MORNING. ST ALSO EVALUATED HIM. HE IS ON [facility] SOFT DIET. HE WAS JUST EATING SCALLOPED POTATOES AND LASAGNA WITH HIS FINGERS INSTEAD OF HIS FORK. AFTER I HANDED THE FORK TO HIM, HE USED IT. NICOTINE PATCH STARTED. HE HAS BEEN RESTLESS. HIS FRIEND SAID HE SMOKES A PACK OR SO A DAY SO HE MIGHT BE MISSING THAT. TELE SHOWS AFIB. NOTIFIED. HE WILL TRY TO FIND OUT IF KASIA HAS A HX OF THAT IN HIS PAST. ONCOLOGY CONSULT CALLED AT 0730 TODAY. NO ONCOLOGIST YET. PALLIATIVE CARE ORDER IS IN.
--- NOTE | 2019-09-01 13:36 | NUR ---
WAS HERE TO CONSULT. HOSPICE IS DECIDED AMONGST THE 3 IN THE ROOM, PATIENT KASIA, FRIENDS RAY AND BETTY. I JUST NOTIFIED PALLIATIVE CARE.
--- NOTE | 2019-09-01 14:46 | NUR ---
Met with pt for theraputic time. Pt and his friend understand that hospice is the only option. review of needs with cattle care worker. pt teraful and anxious chaplian in to see him.
--- NOTE | 2019-09-01 18:02 | NUR ---
Initial spiritual care note: Mr. Ledezma was alone in room. He was limited to one word answers and appeared tearful and confused. He could not articulate his tearfulness or tell me anything about himself. He held my hand tightly while he wept on and off for quite awhile. He appeared to appreciaite touch and compassionate presence. He is non-jew and declined prayer. He will benefit from continued compassion and gentle presence of love. store clerk checker services will remain available.
--- NOTE | 2019-09-01 18:16 | NUR ---
HE IS COMFORTABLE. HIS FRIENDS HAVE LEFT FOR THE NIGHT. BED ALARM ON AND 3 RAILS UP. HE REMAINS CONFUSED. HIS DINNERTIME CBG WAS HIGHER BECAUSE HE ATE A DOUBLE CHEESEBURGER AND A LARGE PEPSI MID-AFTERNOON. HE HAS BEEN INCONTINENT OF URINE. NO BM TODAY. HE DID NOT FOLLOW INSTRUCTIONS WELL FOR MOBILIZATION. A NICOTINE PATCH WAS STARTED WHEN HE WAS RESTLESS. THE PALLIATIVE CARE NURSE WILL REVIEW THE ORDERS AND MAKE ANY NECESSARY CHANGES.
--- NOTE | 2019-09-01 19:16 | NUR ---
Hospice review with critical care registered nurse. his friend and supporter lives in [place] so care managers asked if placement available in [place]. Pt on nicoderm patch for comfort hope is he can smoke after DC if it sooths him. will monitor closely for s/s of seizure activity.
--- NOTE | 2019-09-02 06:23 | NUR ---
SHIFT SUMMARY PT HAS BEEN AGITATED & COMPLAINED OF PAIN IN HANDS AND HEAD, MEDICATED FOR BOTH PER MAR, PT HAS VOIDED SMALL AMTS FREQUENTLY T/O SHIFT, BLADDER SCAN SHOWED PVR= [id number], ORDER REC FOR LANGLEY, PT BEDRESTING AT THIS TIME, WILL CONT TO MONITOR UNTIL REPORT GIVEN TO DAY RN.
--- NOTE | 2019-09-02 08:00 | NUR ---
PT NOT WAKING UP WITH LIGHT PROMPTING. DID FINALLY AWAKEN BY PUTTING BED IN FULL UPRIGHT. RUBBED HAIR FOR SOME TIME. REFUSED FOOD OR WATER. KEPT EYES CLOSED. UNABLE TO EAT SAFELY. DID NOT ANS QUEST. RESP EASY, UNLABORED RESP 14. DID SPEAK TO DR CONRAD CONSIDERING IV DECADRON. NO NEW ORDERS. NO OTHER CONCERNS AT THIS TIME. BED IN LOW POSITIOIN, CALL LITE IN REACH, BED ALARM ON FOR SAFETY
--- NOTE | 2019-09-02 09:52 | NUR ---
SPOKE TO DR POWER RE PT NOT ABLE ENOIUGH TO SWALLOW. HELD DECADRON FOR NOW. WILL TRY TO GIVE LATER IF MORE AWAKE. NOT TO SWITCH TO IV AT THIS TIME.
--- NOTE | 2019-09-02 13:23 | NUR ---
PT AWAKE, EATING, FRIENDS IN ROOM ASSISTING IN FEEDING. CALLED PHARMACY. OKAY GIVE AM MED NOW. NO NEED TO EXTEND MILLICENT DOSE, BUT CAN IF AWAKE LATER IN MILLICENT. PT NOT ANSWERING MY QUESTIONS. BUT EATING AND LOOKING AT FRIENDS. BED IN LOW POSITOIN, CALL LITE IN REACH, BED ALARM ONFOR SAFETY
--- NOTE | 2019-09-02 14:27 | NUR ---
PT RESTING AT THIS TIME. EYES CLOSED , RESP EASY, UNLABORED.BED IN LOW POSITION, CALL LITE IN REACH, BED ALARM ON FOR SAFETY
--- NOTE | 2019-09-02 16:00 | NUR ---
pt resting will see if we can adjuste route on some of his medications.
--- NOTE | 2019-09-02 18:31 | NUR ---
PT WOKE UP FOR LUNCH WITH HIS LONG TIME FRIEND AND FOR DINNER. PROMPTLY FELL ASLEEP AGAIN. DID NOT TALK TO ME. HE DID EAT. CONTINUE TO MONITOR. BED IN LOW POSITION,C ALL LITE IN REACH, BED ALARM ON FOR SAFETY.
--- NOTE | 2019-09-03 04:45 | NUR ---
SHIFT SUMMARY PT HAS APPEARED TO BE COMFORTABLE T/O SHIFT, MEDICATED 1X FOR AGITATION, HAS SLEPT SINCE, POOR PO INTAKE THIS SHIFT, PT APPEARS TO BE SLEEPING COMFORTABLY AT THIS TIME, CALL LIGHT IN REACH, BED ALARM ACTIVE, WILL CONT TO MONITOR UNTIL REPORT GIVEN TO DAY RN.
--- NOTE | 2019-09-03 10:28 | NUR ---
PT UP AWAKE THIS AM. DENIES PAIN. ATE BREAKFAST. ABLE TO TELL ME NAME AND . NOT REMEMBERING YEST VISITORS. CALLED FRIEND TO ADVISE HE UP AND AWAKE. PT UNABLE TO TELL ME DATE, STATES 2 CHILDREN, NOT ABLE TO TELL ME NAMES. PT WANTED TO GET UP TO CHAIR. ASSISTED WITH 2 PEOPLE TO CHAIR. CHAIR ALARM ON FOR SAFETY. CALL LITE IN REACH, TV ON . SITTING IN CHAIR AT THIS TIME
--- NOTE | 2019-09-03 11:15 | NUR ---
[facility] COMFORT CARE VISIT Case conferenced with RN and reviewed EMR prior to visit. Pt was awake, alert, confused and sl anxious trying to get out of chair upon my arrival. RN was able to coax him back to reclining in chair. Pt is nonverbal a present. There are no visitors in the room. When asked if he is hurting, he slowly shakes head no. Will remain avail for s/s assessment and support.
--- NOTE | 2019-09-03 15:52 | NUR ---
PT BECOMING AGITATED AND STATES SOME PAIN. GENERAL. MEDICATED FOR PAIN FIRST. CHECKED BLADDER SCAN. HAS LANGLEY, NOTHING IN BLADDER. SECOND MED FOR ANX. AND THEN SOME MORE PAIN MED. PT FINALLY BEGINNING TO RELAX.
--- NOTE | 2019-09-03 16:06 | NUR ---
PT STATES SOME BETTER NOW. MORE CALM. LYING IN BED.
--- NOTE | 2019-09-03 18:28 | NUR ---
PT THRASHING. PULLING WITH GREAT FORCE ON LANGLEY CATH. TRYING TO GET PULLED OUT. TRIED TO KEEP- HANDS OUT. PUT IN PJ PANTS. NO GOOD. MED FOR PAIN. PROV MED FOR ANX. CALLED DR , DISCUSSED NOT USING RESTRAINTS AND MEDICATING MORE. AGREED LETS PULL LANGLEY SO PT NOT CAUSE SELF HARM. MED AVAIL. LANGLEY PULLED. PT MORE CALM AT THIS MOMENT.
--- NOTE | 2019-09-03 18:49 | NUR ---
PT HAS BEEN PRETTY QUITE MOST OF DAY. SOME CRYING THIS AFT. THIS MILLICENT HE BEGAN TO BECOME AGITATED. MED FOR PAIN WAS PULLING AT LANGLEY. TRIED PUTTIING HIM IN PJ PANTS. TRIED ATIVAN. WE D/C LANGLEY. USING MORE MEDICATIONS TO ASSIST. PT CALM AT THIS TIME. BED IN LOW POSITION, CALL LITE IN REACH, BED ALARM ON FOR SAFETY
--- NOTE | 2019-09-03 22:06 | NUR ---
09/03/191999 PT SITTING AT SIDE OF BED AND BED ALARM SOUNDING. CLEANING MANAGER,SHARLENE AND ANOTHER RN, CALEB ATTEMPTING TO HAVE PT LAY DOWN. PT STATED PROFANITY AND WAS FOUND TO BE INCONTINENT OF URINE IN ATTENDS AND BED LINENS. LARGE AMT OF YELLOW URINE NOTED. ASSISTED TO BSC AND LISSY-CARE GIVEN. BED LINEN CHANGED. PRIMARY RN AT BEDSIDE DURING BSC AND HELPING HIM BACK TO BED. PT DENIES ANY S/S OR PAIN. BED ALARM ON.
--- NOTE | 2019-09-04 07:26 | NUR ---
09/04/19 0600 PT SLEEPING AND WAS AWAKENED DUE TO INCONTINENCE OF URINE(LARGE AMOUNT). CONFUSED TO ALL BUT SELF. SOC ANALYST X 2 CHANGED PT AFTER LISSY-CARE WAS GIVEN. PT LIKES PEPSI AND DID DRINK THAT . REFUSED WATER. DENIED ANY PAIN OR S/S AT THIS TIME.TURNED BUT HE WIGGLES BACK ON BACK.
--- NOTE | 2019-09-04 07:38 | NUR ---
APPEARS COMFORTABLE. SLEEPING
--- NOTE | 2019-09-04 10:30 | NUR ---
PAL CARE COMFORT CARE VISIT: PT IN BED, AWAKE, CONFUSED AND NONVERBAL WHEN SPOKEN TO. HE APPEARS CALM, LOOKING OUT WINDOW AND UP AT TV. NO VISITORS IN THE ROOM AT PRESENT. HE IS NOT DEMONSTRATING ANY NONVERBAL INDICATORS OF DISTRESS AT THIS TIME.
--- NOTE | 2019-09-04 10:36 | NUR ---
APPARS COMORTABLE. NO; MOANING, FURROWED DORA OR C/O. SLEEPING. WCTM
--- NOTE | 2019-09-04 11:40 | NUR ---
ATTEMPT TO SEE IF PATIENT IS PAINFUL(PER DUST SAMPLER), REFUSES MEDS
--- NOTE | 2019-09-04 13:30 | NUR ---
RELATIVES IN WITH PATIENT. PATIENT NONCOMMUNICATIVE. ASKED MULTIPLE TIMES IF IN PAIN AND PATIENT HAS; BLANK STARE OR SMILES. DOES NOT APPEAR TO BE IN PAIN OR ANXIOUS. [facility]
--- NOTE | 2019-09-04 14:36 | NUR ---
LEFT MESSAGE ON VOICE MAIL ABOUT BOWEL CARE. PATIENT DOES GREAT W/DRINKING, SO MIRALAX, SENAKOT AND DULCOLAX SUPPOSITORY. AWAITING ANY ORDERS.
--- NOTE | 2019-09-04 15:33 | NUR ---
SEEMS TO BE ENJOYING RELATIVES VISIT. HOLDING HANDS. WCTM
--- NOTE | 2019-09-04 18:29 | NUR ---
TURNED PRN. MEDICATED PRN. NONVERBAL. FEEDER. INCONTINENT. IV PATENT. WCTM
--- NOTE | 2019-09-04 21:13 | NUR ---
09/04/19 2115 PT SLEEPING WITHOUT DISTRESS. BED ALARM ON.
--- NOTE | 2019-09-05 05:38 | NUR ---
09/05/19 0530 PT MORE RELAXED THIS SHIFT. DOES NOT SPEAK UNLESS ASKED A QUESTION AND THEN ONLY ANSWERS WITH ONE-TO TWO WORD ANSWERS. MEDICATED ONCE FOR PAIN EARLIER. LENS FABRICATING MACHINE TENDER AND ANOTHER LENS FABRICATING MACHINE TENDER CHANGED BRIEF AND PT URINATED AGAIN DURING BED LINEN CHANGE. VOIDING QS. LISSY. AND ORAL CARE GIVEN. REPOSITIONED Q 2-3 HOURS THIS SHIFT.
--- NOTE | 2019-09-05 14:41 | NUR ---
pt comfortable sister and friends at bedside. Pt to dc with [facility]. polst on file
--- NOTE | 2019-09-05 17:00 | NUR ---
Routine spiritual care note: Mr. Ledezma was non-verbal and awake. His sister and two friends were present. They appear devoted and quite loving. Sister tearful, but appropriate. Offered affirmation of obvious love and prayer. No fears/concerns presented. Sotero appeared comfortable and well cared-for by nursing. I will remain available.
--- NOTE | 2019-09-05 18:12 | NUR ---
NO ACUTE ISSUES NOTED AT THIS TIME. PATIENT SEEMS TO BE COMFORTABLE WITH NO COMPLAINTS OF PAIN OR DISCOMFORT NOTED. PRN BOWEL CARE PROVIDED WITH OUT RESULTS AT THIS TIME. NO OTHER ISSUES NOTED, WILL CONTINUE TO MONITOR FOR CHANGES.
--- NOTE | 2019-09-06 05:19 | NUR ---
SUMMARY NO ISSUES NOTED. PT HAS BEEN COMFORTABLE T/O SHIFT. PT FAMILY VISITED PT AND HE HAS BEEN SLEEPING SINCE THEY LEFT. PT CURRENTLY SLEEPING IN NO DISTRESS. CALL LIGHT IN REACH AND BED ALARM ON.
--- NOTE | 2019-09-06 16:35 | NUR ---
SHIFT SUMMARY PT IS ALERT BUT NOT VERBAL OR ORIENTED. HE HAS HAD ANXIETY ON AND OFF THROUGHOUT THE DAY AND MEDICATIONS WERE GIVEN ORDERED WELL REDIRECTIONS, REPOSITIONING AND ADL MANAGEMENT. FAMILY MET WITH CLINICAL ACCOUNT LIAISON AND AGING AND PEOPLE WITH DISABILITIES FOOD DEHYDRATOR OPERATOR TODAY AND THEY ARE WORKING ON PLACEMENT FOR PT. PT HAS BEEN INC OF URINE. T IS A MAX X 2 ASSIST WITH TRANSFERS FROM THE BED TO CHAIR AND FOR TOILETING. FAMILY HAS BEEN AT BEDSIDE MOST OF THE DAY. PT IS NOT ABLE TO MAKE HIS NEEDS KNOWN AND REQUIRES FREQUENT NURSE ROUNDING. FAMILY CALLS FOR HELP WHEN IN ROOM IF NEEDED. PALLIATIVE CARE HAS ALSO MET WITH FAMILY AND VISITED WITH THE PT TODAY.
--- NOTE | 2019-09-06 18:23 | NUR ---
Routine spiritual care note: Met with sister and numerous friends of pt. Sister, Lashaun, reports frustration with process of closing out a life. She admits she would rather be focusing on saying goodbye to her brother than trying to figure out his finances, whose going to pay what, and where he will go from here. She responded well to theraputic listening and emotional affirmation. Encouraged spending a portion of each day with "all this paperwork" and the rest of the time focusing on Sotero. Lashaun appears well supported by Sotero's friends. Sotero slept peacefully throughout conversation. He appears comfortable and well cared-for by nursing. Prayer for a clear path provided. I will remain available.
--- NOTE | 2019-09-07 04:57 | NUR ---
SUMMARY PT HAD A LONG VISIT WITH FAMILY THIS SHIFT. WHEN FAMILY LEFT PT BECAME AGITATED AND TRIED TO GET OUT OF BED. PT WAS TX PER EMAR AND PT WAS ABLE TO RELAX AND SLEEP. NO OTHER ISSUES HAVE BEEN NOTED. PT CURRENTLY SLEEPING AND IN NO DISTRESS. CALL LIGHT IN REACH AND BED ALARM ON. [facility]
--- NOTE | 2019-09-07 18:46 | NUR ---
SHIFT SUMMARY ASSUMED CARE OF PATIENT AT 1300 FROM SYDNEY WANG RN. PATIENT MEDICATED MULTIPLE TIMES TODAY WITH PO ATIVAN AND ROXANOL WHICH SEEMED TO HELP WITH HIS AGITATION. FAMILY AT BEDSIDE THIS EVENING. MULTIPLE INCONTINENT ATTENDS TODAY. NO OTHER CHANGES TODAY
--- NOTE | 2019-09-08 06:52 | NUR ---
SUMMARY PT HAS BEEN COMFORTABLE T/O SHIFT. PT HAS BEEN SLEEPING WELL. PT HAS BEEN REPOSITIONED AND CHANGED NEEDED. CALL LIGHT IN REACH AND BED ALARM ON.
--- NOTE | 2019-09-08 09:58 | NUR ---
AM ASSESSMENT- PT COMFORT CARE PT. PT SITTING UP IN BED EATING BREAKFAST. PT AWAKE AND WILL ANSWER YES/ NO QUESTIONS BUT NOT CONVERSATING. LS CLEAR, ON RA. HRR. NO EDEMA PRESENT. INCONT OF URINE, ATTENDS IN PLACE. SCAB NOTED TO LOWER LEG. SKIN COOL TO TOUCH. DNR WRISTBAND TO LEFT ANKLE. NO COMPLAINTS OR APPARENT DISCOMFORT NOTED.
--- NOTE | 2019-09-08 10:01 | NUR ---
AM ASSESSMENT- PT LYING IN BED WITH EYES SLIGHTLY OPEN, PT DOES NOT RESPOND VERBALLY OR FOLLOW COMMANDS. PT NOTED TO BE MOVING LEFT ARM AND MOVING FEET AROUND. LS DIMINISHED WITH SOME COARSENESS, ON 3L N/C. 2+ BLE EDEMA. DRESSING TO SACRAL AND RIGHT INGRAM C/D/I. HEAL PROTECTORS IN PLACE WITH HEAL MEPILEX. PHOTOS IN CHART. PT APPEARS COMFORTABLE AT THIS TIME.
--- NOTE | 2019-09-08 13:20 | NUR ---
Checked in on Sotero as he is on comfort care at this time. He is awake, sitting up in the bed pulling his ID and DNR bands off his left ankle. He says hello, but that is the only verbal response this nurse got when asking him questions. ID and DNR bands taped at the food of his bed and nursing notified. He is attempting to put his left leg over the side of the bed. Bottom side rail elevated on left side of bed. There are three side rails up at this time. His skin is cool and pale, with some mottling noted to ankles and left knee. He doesn't appear to have any difficulty breathing. Updated nursing on removal of bands and putting leg over the side of his bed. Nursing states they will monitor and medicate for comfort prn. Pt's sister is working on finding placement for Sotero with hospice services at this time. PC will continue to follow for symptom management.
--- NOTE | 2019-09-08 17:31 | NUR ---
SHIFT SUMMARY- PT A COMFORT CARE PT. PT AWAKE AND WILL ANSWER YES/NO QUESTIONS. PT MEDICATED WITH ROXANOL AND ATIVAN. PT RESTLESS AT TIMES AND PULLING ON ATTENDS AND THINGS AROUND HIM. LS CLEAR, ON RA. PT INCONT OF URINE AND EATING AND DRINKING WELL WITH ASSISTANCE AT TIMES. FAMILY HAS BEEN AT BEDSIDE AT TIMES THROUGHOUT THE DAY AND REPORT THEY ARE WORKING ON GETTING GUARDIANSHIP FOR PT. NO OTHER ACUTE CHANGES THIS SHIFT, AWAITING PLACEMENT ON HOSPICE.
--- NOTE | 2019-09-08 19:29 | NUR ---
09/08/191929 PT DOZING ON AND OFF IN BED. DENIES ANY S/S OR DISCOMFORT. BED ALARM ON.
--- NOTE | 2019-09-08 22:04 | NUR ---
09/08/19 2200 PT REPOSITIONED AND BRIEF CHANGED. PT VERY RESTLESS AND UNCOMFORTABLE. SEE MAR FOR MEDS GIVEN. BED ALARM ON.
--- NOTE | 2019-09-09 04:47 | NUR ---
09/09/19 0435 RESTLESS AND FACIAL GRIMACING WHEN ASKED IF IN PAIN. SEE MAR FOR MEDS GIVEN.
--- NOTE | 2019-09-09 07:35 | NUR ---
09/09/19 0630 RN AND TANK HOUSE OPERATOR CHANGED BRIEF FOR INCONTINENCE OF URINE ONLY. DENIES ANY PAIN AT THIS TIME. TURNED Q 2 HOURS WITH 2 STAFF. ORAL AND LISSY-CARE GIVEN. UNEVENTFUL NIGHT.
--- NOTE | 2019-09-09 08:00 | NUR ---
Comfort care visit. Pt resting with eyes closed. Resp unlabored at this time. Chart notes reviewed. PC will continue to follow for symptom managment.
--- NOTE | 2019-09-10 04:00 | NUR ---
SHIFT SUMMARY ASSUMED CARE OF PT AT 1900. PT IS IS DROWSY MOST OF THE NIGHT EXCEPT FOR SOME MOMENTS OF AWAKNESS, PT IS NOT ABLE TO RESPOND TO QUESTIONS. PT BIT THE INSIDE OF HIS TONGUE, MOUTH CLEANED AND PAIN MEDICATION ADMINISTERED. NO ACUTE EVENTS DURING THE NIGHT, PT SLEPT MOST OF THE NIGHT AFTER RECEIVING PAIN MEDICATION EARLIER IN THE SHIFT. CALL LIGHT IN REACH, BED IN LOWEST POSTION, BED ALARM ON, WILL CONTINUE TO MONITOR UNTIL DAYSHIFT NURSE ARRIVES.
--- NOTE | 2019-09-10 10:03 | NUR ---
Pt resting in bed upon arrival. Pt is non verbal with this RN. Pt appears comfortable with no S/S of distress at this time. Palliative Care will remain available.
--- NOTE | 2019-09-10 17:12 | NUR ---
SUMMARY PT RESTING QUIETLY IN BED, FAMILY OR FRIENDS AT THE BEDSIDE, HE HAS HAD SEVERAL VISITORS DURING THE DAY, PT MED PER EMAR FOR COMFORT PT IS ON COMFORT CARE, DOES NEED ASSISTANCE WITH MEALS, REMAINS INCONTINENT AND MOSTLY NON VERBAL, WILL CONT TO MONITOR
--- NOTE | 2019-09-11 03:27 | NUR ---
SHIFT SUMMARY ASSUMED CARE OF PT AT 1900. PT IS ALERT AT TIMES AND CAN REPEAT BACK SHOFT SENTENCES. PT HAS BEEN LEANING OFF OF HIS R LUNG MOST OF THE NIGHT. PT HAS BEEN SLEEPING MOST OF THE NIGHT, PT ONLY NEEDED MEDICATION ONCE AT THIS TIME. CALL LIGHT IN REACH, BED IN LOWEST POSTION, WILL CONITNUE TO MONITOR UNTIL DAYSHIFT NURSE ARRIVES.
--- NOTE | 2019-09-11 09:55 | NUR ---
PT ASSISTED WITH BREAKFAST GAVE MORPHINE AND ATIVAN FOR PAIN
--- NOTE | 2019-09-11 13:42 | NUR ---
Comfort Care Visit Pt resting in bed and appears comfortable. Visitors present and report no concerns at this time. No S/S of distresss at this time. Palliative Care will remain available.
--- NOTE | 2019-09-11 18:27 | NUR ---
PT APPEARS TO BE COMFORTABLE AT THIS TIME
--- NOTE | 2019-09-11 18:28 | NUR ---
PT WAS GIVEN A BED BATH AND MEDICATED PRIOR TO THE BATH
--- NOTE | 2019-09-11 18:30 | NUR ---
PT APPEARS AGITATED, GRIMACING , GAVE ATIVAN AND MORPHINE, WILL CONTINUE TO MONITOR AND ASSESS FOR CHANGES
--- NOTE | 2019-09-11 18:31 | NUR ---
PT OPENS EYES DOES NOT RESPOND VERBALY , THIS AFTERNOON THE PT BECAME MORE RESTLESS AND APPEARED TO BE AGITATED, PT WAS MEDICATED FOR PAIN AND ANXIETY T/O THE DAY, FAMILY AWAS IN TO SEE THE PT EARLIER TODAY,PT WAS ASSITED WITH [place] WAS GIVEN A BEDBATH AND SHAVE BY THE [employer] GRADER, CALL LIGHT IN REACH NO OTHER CHANGES NOTICED THIS SHIFT
--- NOTE | 2019-09-12 04:02 | NUR ---
SHIFT SUMMARY ASSUMED CARE OF PT AT 1900. PT IS DROWSY AND WILL SOMTIMES RESPOND WITH A HELLO OR HI. RESPIRATIONS STABLE. PT SLEPT MOST OF THE NIGHT EXCEPT FOR A LITTLE AGITATION AT THE BEGINNING OF THE SHIFT, MEDICATED PER EMAR. CALL LIGHT IN REACH, BED IN LOWEST POSTION, WILL CONITNUE TO MONITOR UNTIL DAYSHIFT NURSE ARRIVES.
--- NOTE | 2019-09-12 07:15 | NUR ---
PT. SLEEPING RESTFULL, BREATHING SHALLOW.
--- NOTE | 2019-09-12 09:15 | NUR ---
PT. LYING QUIETLT NO S\S OF DISTRESS.
--- NOTE | 2019-09-12 09:55 | NUR ---
PT. AWAKE AND STARING OUT THE WINDOW. PT. HAD KICKED THE COVERS OFF. CHANGED HIS ATTENDS AND FED HIM BKFST. TOLERATED WELL NO COUGHING OR CHOKING NOTED. PT. IS FIDGETY SO WAS GIVEN 1MG PO ATIVAN.
--- NOTE | 2019-09-12 11:50 | NUR ---
PT. LYING QUIETLT FAMILY AT BEDSIDE. PT. NOTED TO BE MOTTLED ON FEET AND KNEES.
--- NOTE | 2019-09-12 12:15 | NUR ---
PT. FAMILY AND FRIENDS AT BEDSIDE, SAID PT. TOLD THEM HIS BACK HURT. PT. GIVEN 20 OF ROXANOL., FACE INDICATED HE WAS IN PAIN BUT WOULD NOT TALK TO ME.
--- NOTE | 2019-09-12 14:15 | NUR ---
PT. LYING QUIETLY BASKING IN THE SUN.
--- NOTE | 2019-09-12 14:38 | NUR ---
PT. SITTING UP IN BED, ATE MOST OF HIS LUNCH, FAMILY HELPED HIM WITH IT.
--- NOTE | 2019-09-12 16:07 | NUR ---
Comfort care visit Sotero is awake and family is in his room at the time of my visit. He was nonverbal when asked how he was, however he did smile when I spoke to him. Family is feeding him his second lunch of the day. Family is working on guardianship for placement with hospice. Family is greatful for the care he is receiving and does not have any questions at this time. PC will continue to follow for symptom managment.
--- NOTE | 2019-09-12 16:42 | NUR ---
PT. LYING QUIETLT.
--- NOTE | 2019-09-12 17:19 | NUR ---
PT. LYING IN BED FACE PRESENTS WITH PAIN, ARMS AND LEGS STIFFENED OUT AND PUSHING ON BEDRAILS.
--- NOTE | 2019-09-12 18:19 | NUR ---
PT. SLEEPING VERY RELAXED AT THIS TIME. NO NOTEABLE CHANGES THIS SHIFT. PT. EATING MEALS WELL WHEN AWAKE.
--- NOTE | 2019-09-12 19:36 | NUR ---
COMFORT CARE 1910 APPEARS TO BE RESTING. NO ACUTE CHANGES NOTED. BED IN LOWEST POSITION; ALARM ON. CALL LIGHT AND BELONGINGS WITHIN REACH. TM.
--- NOTE | 2019-09-12 20:13 | NUR ---
COMFORT CARE 2007 CALL LIGHT ON. FREE MOVEMNT IN BED. ATTENDS WET; CHANGED. REPOSITIONED. ORAL CARE ATTEMPTED. BED REPLACED TO LOWEST POSITION; ALARM ON. CALL LIGHT WITHIN REACH. [facility].
--- NOTE | 2019-09-13 00:03 | NUR ---
0003 FAMILY CORRESPONDENCE DAVID CALLED PREVIOUS AND STATED WOULD LIKE UPDATE. EXPLAINED TO SON THAT WE WERE JUST IN REPOSITIONING PATIENT AND CHANGING ATTENDS. MEDICATED PATIENT PER EMAR WELL; APPEARED AGITATED AT THE TIME. DAVID EXPRESSED GRATITUDE AND WONDERED IF WE WERE ALLOWING VISITORS; EXPLAINED THAT FAR THIS RN KNEW VISITORS WERE BEING SCREENED PRIOR TO ENTRY AND WERE NOT ALLOWED IN AFTER 1999.
--- NOTE | 2019-09-13 00:10 | NUR ---
COMFORT CARE 2215 APPEARS TO BE RESTING COMFORTABLY. NO ACUTE CHANGES AT THIS TIME. BED IN LOWEST POSITION; ALARM ON. CALL LIGHT WITHIN REACH. WCTM.
--- NOTE | 2019-09-13 00:13 | NUR ---
COMFORT CARE 2355 APPEARED RESTLESS UPON ENTRY. PULLING AT ATTENDS. ATTENDS CHANGED; BARRIER CREAM TO COCCYX. LINENS CHANGED. MEDICATED PER EMAR. NO OTHER CHANGES AT THIS TIME. BED IN LOWEST; ALARM ON. CALL LIGHT IN REACH. WCTM.
--- NOTE | 2019-09-13 01:46 | NUR ---
COMFORT CARE 0145 APPEARS TO BE RESTING COMFORTABLY. BREIF CHECKED; DRY. NO ACUTE CHANGES AT THIS TIME. BED IN LOWEST POSITION; ALARM ON. CALL LIGHT WITHIN REACH. TM.
--- NOTE | 2019-09-13 02:47 | NUR ---
COMFORT CARE 0240 APPEARS AGITATED; ATTENDS PULLED OFF. BLANKETS OFF. REPLACED ATTENDS AND RAMIREZ. REPOSITIONED. MEDICATED FOR PAIN PER EMAR. NO OTHER ACUTE CHANGES. BED IN LOWEST; ALARM ON. CALL LIGHT WITHIN REACH. WCTM.
--- NOTE | 2019-09-13 04:24 | NUR ---
COMFORT CARE 0424 APPEARS TO BE RESTING. NO ACUTE CHANGES. BED IN LOWEST POSITION; ALARM ON. CALL LIGHT WITHIN REACH. TM.
--- NOTE | 2019-09-13 05:35 | NUR ---
SHIFT SUMMARY ANSWERS QUESTIONS. MOSTLY FOLLOWS DIRECTIONS. APPEARED TO REST MUCH OF SHIFT. Q2 TURNS WITH ROUTINE ATTENDS CHECKS. APPEARED AGITATED AT TIMES; MEDICATED PER EMAR. NO ACUTE CHANGES OVERNIGHT. BED REMAINED IN LOWEST POSITION; ALARM ON. CALL LIGHT IN REACH. WCTM. REPORT TO ONCOMING RN.
--- NOTE | 2019-09-13 07:43 | NUR ---
COMFORT CARE 0638 APPEARED TO BE RESTING UPON ENTRY. ATTENDS WET; CHANGED. ATTEMPTED TO REPOSITION; MOVES FREELY IN BED. MEDICATED PER EMAR; FLAAC SCALE USED. NO OTHER ACUTE CHANGES NOTED. BED IN LOWEST POSITION; ALARM ON. CALL LIGHT IN REACH. CONTINUED TO MONITOR.
--- NOTE | 2019-09-13 19:11 | NUR ---
SHIFT SUMMARY. PT ALERT THIS SHIFT, DISORIENTATED. PT WITHOUT S/SX OR C/O PAIN TILL 1420, THEN PT BECAME RESTLESS, WITH MOANING, BITING LIP, AND GRIMACING 4 TIMES TILL END OF SHIFT. PAIN AND ANXIETY MANAGED WELL WITH CURRENT ORDERS. FAMILY AT BEDSIDE INTERMITTENTLY DURNG SHIFT. NO NEW CHANGES OR COMPLAINTS.
--- NOTE | 2019-09-14 07:46 | NUR ---
SHIFT SUMMARY PT SLEPT WELL THIS NIGHT. NO COMPLAINTS OF PAIN OR DISCOMFORT. AWAKENED ONLY DURING REPOSITIONS AND ATTENDS CHANGES. NO ACUTE CHANGES NOTED THIS NIGHT. REPORT TO ONCOMING RN.
--- NOTE | 2019-09-14 18:10 | NUR ---
SHIFT SUMMARY DAUGHTER AT BEDSIDE PART OF THE DAY. PT HAS BECOME INCREASINGLY RESTLESS AFTERNOON PROGRESSED DESPITE ATIVAN AND ROXONAL. PALLIATIVE CARE IN AND DISCUSSED CONSTIPATION BEING A PROBLEM FOR HIM IN THE PAST. BOWEL CARE GIVEN AT SUPPERTIME.
--- NOTE | 2019-09-14 19:09 | NUR ---
pt aggitated and pulling at attends states yes to tummy hurting. Review with nursing pt history of constipation and nausea. Prn meds reviewed will scheduled medication no s/s of seizure noted.
--- NOTE | 2019-09-15 03:53 | NUR ---
PT APPEARS COMFORTABLE. RESTING QUIETLY, SITTING UP IN BED. OPENS EYES AND ATTEMPTS WORDS, ALTHOUGH INCOHERENT. TAKES DRINKS READILY. NO S/S OF PAIN OR ANXIETY.
--- NOTE | 2019-09-15 06:38 | NUR ---
SHIFT SUMMARY: PT REMAINS IN COMFORT CARE STATUS. HAS REMAINED ASLEEP THROUGH THE NIGHT. RESPS REGULAR, NON-LABORED. NO S/S OF PAIN. NO AGITATION OR ANXIETY. APPEARS CALM AND COMFORTABLE. AWAKE AT HS AND TAKING FLUIDS WELL. NO ACUTE CHANGES. WILL CONT TO MONITOR.
[2019-09-15] MEDS ORDERED: DEXA4 PO (10:02)
[2019-09-15] MEDS ORDERED: Ativan1 MG PO (10:03)
[2019-09-15] MEDS ORDERED: MORP20L SL (10:04)
--- NOTE | 2019-09-15 12:49 | NUR ---
Review of patient needs with family updated amedysis hospice on patients symptoms and constipation. Advised of chages in uniary pattern and frequency pt now voiding high volumes. they will consult with hospice physician after intake. pt risk for seizures.
--- NOTE | 2019-09-15 15:59 | NUR ---
PT DISCHARGED [facility]. FAMILY AT BEDSIDE PRIOR TO DISCHARGING. PT MORE DROWSY TODAY THAN YESTERDAY. PREMEDICATED FOR TRANSPORTATION TO [place]. TO [place] [facility].
== END 2019-09-15 12:55 | disposition hospice, home (50) | DRG 54 ==
LOC: ER 11:52 → MEDS 16:00 → ENPENDDIS 09-15 11:05 → MEDS 09-15 12:55
PROVIDERS: Nurse Practitioner Acute Care; Physician Assistant; ADMIT Internal Medicine
DX: C79.31 Secondary malignant neoplasm of brain (principal); G92 Toxic encephalopathy; C34.90 Malignant neoplasm of unspecified part of unspecified bronchus or lung; I25.10 Atherosclerotic heart disease of native coronary artery without angina pectoris; Z95.5 Presence of coronary angioplasty implant and graft; F17.210 Nicotine dependence, cigarettes, uncomplicated; Z66 Do not resuscitate; Z51.5 Encounter for palliative care; E11.9 Type 2 diabetes mellitus without complications; I10 Essential (primary) hypertension
CPT/HCPCS: 36415; 70450; 71046; 80053; 82947; 83735; 85025; 85610; 92610; 93005; 93010; 96374; 97162; 97166; 97530; 97535; 99285-25; A9270-GY; J1100; J7030